=== PATIENT | male | born 1990 | race African-American/Black ===

== ENCOUNTER 2016-11-06 23:01 | Emergency (ER) | payer MEDICAID, OTHER ==
[~2016-11-06] VITALS: Ht 175.3 cm; Wt 90.5 kg
[~2016-11-06 23:01] MED LIST: PERC7.5T13 PO; PROM6.2518 PO; PROT40TA OR; TRAM50TA PO
[2016-11-06 23:03] VITALS: BP 141/77; PULSE 50; RESP 16; TEMP 99; O2SAT 98
[2016-11-07] MEDS ORDERED: ONDANSETRON HCL 4 MG/2 ML VIAL IV ONE (02:00)
[2016-11-07] MEDS ORDERED: SODIUM CHLOR 0.9% 1000 ML INJ 1,000 ML IV ONE (02:00)
[2016-11-07 02:01] VITALS: RESP 22; O2SAT 100
--- NOTE | 2016-11-07 02:13 | RADRPT ---
EXAM DATE/TIME: 11/07/2016 01:56 [facility] COMPARISON: No previous studies available for comparison. INDICATIONS : Short of breath. MEDICAL HISTORY : None. SURGICAL HISTORY : None. ENCOUNTER: Initial ACUITY: 1 day PAIN SCORE: 0/10 LOCATION: Bilateral chest FINDINGS: A single view of the chest demonstrates the lungs to be symmetrically aerated without evidence of mas s, infiltrate or effusion. The cardiomediastinal contours are unremarkable. Osseous structures are intact. CONCLUSION: No acute disease. Fareed Chacon MD on November 07, 2016 at 2:10 Board Certified Radiologist. This report was verified electronically.
[2016-11-07 02:30] LABS: AUTOMATED NEUTROPHIL # 6.2 TH/MM3 (1.8-7.7); BASOPHIL # 0.1 TH/MM3 (0-0.2); BASOPHIL % 0.8 % (0.0-2.0); EOSINOPHIL % 0.1 % (0.0-4.0); HEMATOCRIT 46.9 % (39.0-51.0); HEMO FLAGS DIFF FINAL; LYMPH % 18.4 % (9.0-44.0); LYMPHOCYTE # 1.6 TH/MM3 (1.0-4.8); MEAN CELL VOLUME 92.5 FL (80.0-100.0); MEAN CORPUSCULAR HEMOGLOBIN 31.1 PG (27.0-34.0); MEAN CORPUSCULAR HGB CONC 33.6 % (32.0-36.0); MONO % 11.5 % (0.0-8.0); NEUT % 69.2 % (16.0-70.0); PLATELET COUNT 207 TH/MM3 (150-450); RED BLOOD COUNT 5.07 MIL/MM3 (4.50-5.90); RED CELL DISTRIBUTION WIDTH 13.4 % (11.6-17.2); WHITE BLOOD COUNT 8.9 TH/MM3 (4.0-11.0)
--- NOTE | 2016-11-07 02:41 | PD ---
HPI Chief Complaint: Abdominal Pain Time Seen by Provider: 01:52 Travel History International Travel<30 days: No Contact w/Intl Traveler<30days: No Traveled to known affect area: No History of Present Illness HPI The patient is a 26 year old mmale who presents to the [facility] emergency department with a history of recurrence of abdominal pain that began on Saturday. The patient reports that the pain is in the midepigastric area. The patient reports the pain is similar to the pain that he has experienced in the past related to gastroparesis. He has had n/v x10-12 times since yesterday. He ran out of his Levsin and nausea medication 2 weeks ago. Mylanta has not been helping. His last BM was yesterday. He gets chest pain with indigestion and heartburn and sweating prior to his episodic vomiting. He denies having a GI doctor or PCP. On review of systems, the patient denies any recent fevers cough , congestion, neck pain, diarrhea, urinary symptoms, or neurologic symptoms. PFSH Past Medical History Narrative Medical The patient's past medical history is significant for gastroparesis and gastritis. Diminished Hearing: No Gastrointestinal Disorders: Yes (GASTRITIS, GASTROPORESIS) Immunizations Current: Yes Past Surgical History Narrative Surgical The patient's past surgical history is significant for cyst removal off of kidney. Abdominal Surgery: Yes (HIATAL HERNIA REPAIR 01/2011) Social History Alcohol Use: No Tobacco Use: Yes (occasionally.) Substance Use: No Allergies-Medications (Allergen,Severity, Reaction): Coded Allergies: naproxen (Unverified Allergy, Severe, 11/07/16) prochlorperazine (Unverified Allergy, Severe, 11/07/16) Reported Meds & Prescriptions Reported Meds & Active Scripts Active Zofran Odt (Ondansetron Odt) 4 Mg Tab 4 Mg SL Q6HR PRN Levsin-SL (Hyoscyamine Sulfate) 0.125 Mg Subl 0.125 Mg SL Q6H Protonix (Pantoprazole Sodium) 40 Mg Tab 40 Mg PO DAILY Review of Systems Except as stated in HPI: all other systems reviewed are Neg General / Constitutional: No: Fever Eyes: No: Visual changes HENT: No: Headaches Cardiovascular: Positive: Chest Pain or Discomfort, Diaphoresis Respiratory: No: Shortness of Breath Gastrointestinal: Positive: Nausea, Vomiting, Abdominal Pain, Indigestion, No: Diarrhea, Hematemesis, Hematochezia, Changes in Bowel Habits, Loss of Appetite Genitourinary: No: Dysuria Musculoskeletal: No: Pain Skin: No Rash Neurologic: No: Weakness Psychiatric: No: Depression Endocrine: No: Polydipsia Hematologic/Lymphatic: No: Easy Bruising Physical Exam Narrative General: The patient is well-developed well-nourished male in no acute distress, sleeping soundly and my arrival to the room. Head and Neck exam: Head is normocephalic atraumatic. Eyes: EOMI, pupils are equal round and reactive to light. Nose: Midline septum with pink mucous membranes Mouth: Dentition unremarkable. Moist mucus membranes. Posterior oropharynx is not erythematous. No tonsillar hypertrophy. Uvula midline. Airway patent. Neck: No palpable lymphadenopathy. No nuchal rigidity. No thyromegaly. Cardiovascular: Regular rate and rhythm without murmurs, gallops, or rubs. No pulse deficit to the extremities. Lungs: Clear to auscultation bilaterally. No wheezes, rhonchi, or rales. Abdomen: Soft, with midepigastric tenderness on palpation, no other tenderness on palpation of the other quadrants of the abdomen. No guarding, rebound, or rigidity. Negative Hutchins's sign. No tenderness on palpation of McBurney's point. Normal bowel sounds are audible. Extremities: No clubbing, cyanosis, or edema. 2+ pulses in all 4 extremities. No calf tenderness on palpation. Back: No spinous process tenderness to palpation. No costovertebral angle tenderness to palpation. Neurologic Exam: Grossly nonfocal. Skin Exam: No rash noted. Intact skin that is warm and dry. Data Data Last Documented VS Vital Signs Date Time Temp Pulse Resp B/P (MAP) Pulse Ox O2 Delivery O2 Flow Rate FiO2 11/07/16 05:18 11/07/16 04:00 54 16 100 11/07/16 02:01 Room Air 11/06/16 23:03 99.0 Orders Orders Complete Blood Count With Diff (11/07/16 01:53) Comprehensive Metabolic Panel (11/07/16 01:53) C-Reactive Protein (Crp) (11/07/16 01:53) Lipase (11/07/16 01:53) Magnesium (Mg) (11/07/16 01:53) Chest, Single Ap (11/07/16 01:53) Ct Abd/Pel W Iv Contrast(Rout) (11/07/16 01:53) Iv Access Insert/Monitor (11/07/16 01:53) Ecg Monitoring (11/07/16 01:53) Oximetry (11/07/16 01:53) Sodium Chlor 0.9% 1000 Ml Inj (Ns 1000 M (11/07/16 02:00) Ondansetron Inj (Zofran Inj) (11/07/16 02:00) Pantoprazole Inj (Protonix Inj) (11/07/16 03:00) Morphine Inj (Morphine Inj) (11/07/16 03:00) Iohexol 350 Inj (Omnipaque 350 Inj) (11/07/16 03:28) Potassium Chloride (Kcl) (11/07/16 04:45) Labs Laboratory Tests Test 11/07/16 00:20 White Blood Count 8.9 TH/MM3 Red Blood Count 5.07 MIL/MM3 Hemoglobin 15.7 GM/DL Hematocrit 46.9 % Mean Corpuscular Volume 92.5 FL Mean Corpuscular Hemoglobin 31.1 PG Mean Corpuscular Hemoglobin Concent 33.6 % Red Cell Distribution Width 13.4 % Platelet Count 207 TH/MM3 Mean Platelet Volume 9.4 FL Neutrophils (%) (Auto) 69.2 % Lymphocytes (%) (Auto) 18.4 % Monocytes (%) (Auto) 11.5 % Eosinophils (%) (Auto) 0.1 % Basophils (%) (Auto) 0.8 % Neutrophils # (Auto) 6.2 TH/MM3 Lymphocytes # (Auto) 1.6 TH/MM3 Monocytes # (Auto) 1.0 TH/MM3 Eosinophils # (Auto) 0.0 TH/MM3 Basophils # (Auto) 0.1 TH/MM3 CBC Comment DIFF FINAL Differential Comment Blood Urea Nitrogen 14 MG/DL Creatinine 1.46 MG/DL Random Glucose 85 MG/DL Total Protein 8.1 GM/DL Albumin 4.5 GM/DL Calcium Level 9.2 MG/DL Magnesium Level 2.3 MG/DL Alkaline Phosphatase 60 U/L Aspartate Amino Transf (AST/SGOT) 13 U/L Alanine Aminotransferase (ALT/SGPT) 24 U/L Total Bilirubin 1.4 MG/DL Sodium Level 134 MEQ/L Potassium Level 3.3 MEQ/L Chloride Level 95 MEQ/L Carbon Dioxide Level 33.2 MEQ/L Anion Gap 6 MEQ/L Estimat Glomerular Filtration Rate 70 ML/MIN C-Reactive Protein LESS THAN 0.29 MG/DL Lipase 137 U/L [facility] Medical Decision Making Medical Screen Exam Complete: Yes Emergency Medical Condition: Yes Medical Record Reviewed: Yes Interpretation(s) Last Impressions Chest X-Ray 11/07/16152 Signed Impressions: Service Date/Time: Monday, November 07, 2016 01:56 - CONCLUSION: No acute disease. Fareed Chacon MD Abdomen/Pelvis CT 11/07/16152 Signed Impressions: Service Date/Time: Monday, November 07, 2016 03:20 - CONCLUSION: 1. No acute findings on abdomen and pelvic CT. 3.2 cm upper pole right renal cyst. Fareed Chacon MD Differential Diagnosis Exacerbation of gastroparesis, versus gastritis, versus gastroesophageal reflux disease, versus acute pancreatitis, versus dehydration, versus electrolyte derangement Narrative Course During the course of the patients emergency department visit, the patients history, examination, and differential diagnosis were reviewed with the patient. The patient had IV access obtained and blood work sent for analysis. The patient was placed on a air sampling and monitoring with oximetry and blood pressure monitoring The patient was initially provided normal saline 1 L IV fluid bolus, Zofran 4 mg IV, morphine 4 mg IV for pain, Protonix 40 mg IV The patients laboratory studies were reviewed and remarkable for a white count of 8.9, hemoglobin 15.7, platelets 207 with 11.5 monocytes, CMP is remarkable for sodium of 134, potassium 3.3 which was supplemented orally, chloride 95, CO2 33.2, creatinine 1.46, total bilirubin 1.4, AST 13, C-reactive protein is less than 0.29, lipase 137 Radiology studies were reviewed and remarkable for a chest x-ray that shows no acute cardiopulmonary disease. CT scan of the abdomen and pelvis shows no acute findings on the abdomen and pelvic CT. 3.2 cm upper pole right renal cyst is noted. The patient is resting comfortably and feels better, is alert and in no distress. The patients results and examination findings were discussed with the patient. The repeat examination is unremarkable and benign. The history, exam, diagnostic testing, and current condition do not suggest any significant pathology to warrant further testing, continued ED treatment, admission, or surgical evaluation at this point. The vital signs have been stable. The patient does not have uncontrollable pain, intractable vomiting, or other significant symptoms. The patient's condition is stable and appropriate for discharge. The patient will pursue further outpatient evaluation with a primary care physician or other designated or consulting physician as indicated in the discharge instructions. The patient expressed understanding and was agreeable with this plan. Diagnosis Primary Impression: Abdominal pain Qualified Codes: R10.13 - Epigastric pain Additional Impression: Vomiting Qualified Codes: R11.2 - Nausea with vomiting, unspecified Referrals: Le Powell MD 3 days Tashi Kay MD 1 week Patient Instructions: Gastroparesis (ED), General Instructions Med/Other Pt SpecificInfo: Prescription(s) given Scripts Ondansetron Odt (Zofran Odt) 4 Mg Tab 4 MG SL Q6HR Y for Nausea/Vomiting, #7 TAB 0 Refills Prov: Nela Rod MD 11/07/16 Hyoscyamine Odt (Levsin-SL) 0.125 Mg Subl 0.125 MG SL Q6H for Gastrointestinal disorders, #16 TAB.SL 0 Refills Prov: Nela Rod MD 11/07/16 Pantoprazole (Protonix) 40 Mg Tab 40 MG PO DAILY for Reflux, #30 TAB 0 Refills Prov: Nela Rod MD 11/07/16 Disposition: 01 DISCHARGE HOME Condition: Stable Nela Rod MD Nov 07, 2016 02:41
[2016-11-07] MEDS ORDERED: PANTOPRAZOLE SODIUM 40 MG VIAL IV PUSH ONE (03:00)
[2016-11-07] MEDS ORDERED: MORPHINE SULFATE 4 MG/ML INJ IV PUSH ONE (03:00)
[2016-11-07 03:03] LABS: ALT (GPT) 24 U/L (12-78); ANION GAP 6 MEQ/L (5-15); AST (GOT) 13 U/L (15-37); BICARBONATE 33.2 MEQ/L (21.0-32.0); BLOOD UREA NITROGEN 14 MG/DL (7-18); CHLORIDE 95 MEQ/L (98-107); GLOMERULAR FILTRATION RATE 70 ML/MIN (>89); MAGNESIUM 2.3 MG/DL (1.5-2.5); POTASSIUM 3.3 MEQ/L (3.5-5.1); SODIUM (NA) 134 MEQ/L (136-145)
[2016-11-07 03:06] LABS: ALKALINE PHOSPHATASE 60 U/L (45-117); TOTAL BILIRUBIN ADULT 1.4 MG/DL (0.2-1.0)
[2016-11-07] MEDS ORDERED: IOHEXOL 350 MG/ML 10 ML VIAL (for RAD DIAG) IVCONTRAST ONE (03:28)
[2016-11-07 04:00] VITALS: BP 124/71; PULSE 54; RESP 16; O2SAT 100
--- NOTE | 2016-11-07 04:01 | RADRPT ---
EXAM DATE/TIME: 11/07/2016 03:20 [facility] COMPARISON: No previous studies available for comparison. INDICATIONS : Upper abdomen pain. IV CONTRAST: 93 cc Omnipaque 350 (iohexol) IV ORAL CONTRAST: No oral contrast ingested. RADIATION DOSE: 8.14 CTDIvol (mGy) MEDICAL HISTORY : Hernia, hiatal. SURGICAL HISTORY : Hiatal hernia repair ENCOUNTER: Initial ACUITY: 1 day PAIN SCALE: 7/10 LOCATION: abdomen TECHNIQUE: Volumetric scanning of the abdomen and pelvis was performed. Using automated exposure control and ad justment of the mA and/or kV according to patient size, radiation dose was kept as low as reasonably achievable to obtain optimal diagnostic quality images. DICOM format image data is available electro nically for review and comparison. FINDINGS: The lung bases are clear. No acute findings in the liver, spleen, adrenals, left kidney or pancreas. Right renal cyst present. No calcified gallstones or biliary ductal dilatation. No pelvic masses or adenopathy. Bladder unremarkable. No acute bony abnormality. No bowel obstruction , free fluid or free air. CONCLUSION: 1. No acute findings on abdomen and pelvic CT. 3.2 cm upper pole right renal cyst. Fareed Chacon MD on November 07, 2016 at 3:54 Board Certified Radiologist. This report was verified electronically.
[2016-11-07] MEDS ORDERED: POTASSIUM CHLORIDE 20 MEQ CONTROLLED RELEASE TAB PO ONE (04:45)
[2016-11-07] MEDS ORDERED: PROT40TA PO (05:10)
[2016-11-07] MEDS ORDERED: ZOFR4TAB3 SL (05:10)
[2016-11-07] MEDS ORDERED: LEVS0.124 SL (05:10)
== END 2016-11-07 05:19 | disposition home or self-care (01) ==
LOC: NEPE 23:01
DX: R10.13 Epigastric pain (principal); R11.2 Nausea with vomiting, unspecified
CPT/HCPCS: 71010; 74177; 80053; 83690; 83735; 85025; 86140; 96361; 96374; 96375; 99285; C9113; J2270; J2405; J7030; Q9967